=== PATIENT | female | born 1945 | race Caucasian/White ===

== ENCOUNTER → 2017-10-18 | Outpatient (CLI) | payer OTHER ==
[~2017-10-18] MED LIST: AZEL0.057 TOP; B-COTAB18 PO; CALC600T9 PO; DICY10CA55 PO; LACT1CAP6 PO; LISI-725 PO; MAGN400T6 PO; METO25TA4 PO; MULT-506 PO; NARA1TAB4 PO; PRIM50TA29 PO; SERT100T PO; SIMV20TA2 PO; TIZA4CAP PO
--- NOTE | 2017-10-18 16:22 | DIAGNOSTIC IMAGING REPORT ---
LEG LENGTH STUDY (WHOLE LEG) CLINICAL HISTORY: LEG LENGTH DISCREPANCY COMPARISON STUDY: No previous studies for comparison. FINDINGS: When measuring from the femoral heads to the tibial plafonds, the right lower extremity measures 85 cm and the left measures 84.6 cm. No suspicious osseous lesion is noted. Knee joint spaces appear preserved within the medial and lateral compartments. No fracture is noted. A calcific/ossific density adjacent to the greater trochanter of the left femur is chronic. IMPRESSION: Right leg length of 85 cm and left leg length of 84.6 cm. Electronically signed by: Moses Coleman M.D. 10/18/2017 4:20 PM Dictated Date/Time: 10/18/2017 4:19 PM
== END | disposition home or self-care (01) ==
LOC: C.RADBC 15:54
PROVIDERS: ATTEND Physician Assistant
DX: M21.70 Unequal limb length (acquired), unspecified site (principal); M54.5 Low back pain; G89.29 Other chronic pain